=== PATIENT | male | born 1980 | race Caucasian/White ===

== ENCOUNTER 2019-10-13 19:12 | Emergency (ER) | payer BC, MEDICAID ==
[2019-10-13] MEDS: Lidocaine 1% 10 ML MDV INJECT ONE (19:25)
[2019-10-13] MEDS: Bacitracin Oint 1 GM U/D Packet TOP ONE (19:40)
[2019-10-13 19:47] VITALS: BP 134/89; PULSE 90
--- NOTE | 2019-10-13 20:17 | EDM.PDOC ---
ED [facility] GENERAL MEDICAL PROBLEM - General Chief Complaint: General Stated Complaint: NECK LACERATION Time Seen by Provider: 10/13/19 19:15 Source of Information: Reports: Patient History Limitations: Reports: No Limitations - History of Present Illness INITIAL COMMENTS - FREE TEXT/NARRATIVE: This patient presents to the ED for evaluation of a laceration. He was using a organ grinder on a metal angle iron when a piece flew off and struck him in the neck. He has a laceration to the right anterior neck overlying the carotid artery. He also has a small wound to his left 2nd digit but otherwise denies other injuries or concerns. Patient denies recent illnesses including fever, cough, shortness or breath, or sore throat. Onset: Today, Sudden Onset Date: 10/13/19 Onset Time: 18:00 Location: Reports: Neck Severity: Moderate Right Neck Pain Score (Numeric/FACES): 5 - Related Data Allergies Allergy/AdvReac Type Severity Reaction Status Date / Time No Known Allergies Allergy Verified 10/14/15 19:13 Home Meds: Home Meds NK [No Known Home Meds] 10/14/15 [History] Past Medical History Musculoskeletal History: Reports: Back Pain, Chronic ED ROS GENERAL - Review of Systems Review Of Systems: Comprehensive ROS is negative, except as noted in HPI. ED EXAM, GENERAL - Physical Exam Exam: See Below Exam Limited By: No Limitations General Appearance: Alert, WD/WN, No Apparent Distress Eye Exam: Bilateral Eye: PERRL Ears: Normal External Exam Nose: Normal Inspection Throat/Mouth: Normal Oropharynx, No Airway Compromise, Other (7 cm laceration to anterior right neck overlying carotid artery; laceration through epidermis must not into dermis. No pulsatile bleeding noted. ). No: Dysphagia Neck: Supple, Limited Range of Motion, Tender Lateral (tenderness right) Respiratory/Chest: No Respiratory Distress, Lungs Clear, Normal Breath Sounds, No Accessory Muscle Use Peripheral Pulses: 2+: Carotid (L), Carotid (R) Skin Exam: Warm, Dry, Normal Color, Wound/Incision (as noted) ED GENERAL MEDICAL PROCEDURES - Laceration/Wound Repair Right Anterior Neck Lac/wound length in cm: 7 Appearance: Subcutaneous, Linear, Mildly Contaminated Distal NVT: Neuro & Vascular Intact (no tendon injury) Anesthetic Type: Local Local Anesthesia - Lidocaine (Xylocaine): 1% Plain Local Anesthetic Volume: Other (12) Skin Prep: Chlorhexidine (Hibiciens) Saline irrigation (cc's): 300 Exploration/Debridement/Repair: Wound Explored, Explored to Base, Foreign Material Removed (metal shards) Closed with: Sutures Suture Size: 4-0 # of Sutures: 12 Suture Type: Nylon, Simple Suture Size: 5-0 # of Sutures: 3 Repaired with: Vicryl Drain Placement: No Sterile Dressing Applied: Nurse (antibiotic ointment applied) Tetanus Status Addressed: Yes (patient states last booster was 2 years ago) Progress/Comments: tolerated procedure well Course - Vital Signs Last Recorded V/S: Last Vital Signs Temp 36.6 C 10/13/19 19:21 Pulse 90 10/13/19 19:21 Resp 20 10/13/19 19:21 BP 134/89 10/13/19 19:21 Pulse Ox 98 10/13/19 19:21 - Re-Assessments/Exams Free Text/Narrative Re-Assessment/Exam: 10/13/19 20:33 This patient presents with a laceration to his neck. The wound was carefully evaluated and explored. The laceration was closed with sutures as noted above. There is no evidence of significant vascular, muscular, tendon, or bony damage with this laceration. No signs of foreign body. Possible complications ( infection, scarring) were reviewed with the patient. Follow up with primary care will be indicated in 7-10 days for suture removal. He should make an appointment sooner for any increases in pain, swelling, or any noted discharge from the wound. He was instructed to wash the wound twice per day with soap and water then apply antibiotic ointment. Departure - Departure Time of Disposition: 20:20 Disposition: Home, Self-Care 01 Condition: Good Clinical Impression: Laceration of neck - Discharge Information *PRESCRIPTION DRUG MONITORING PROGRAM REVIEWED*: Not Applicable Instructions: Wound Care, Adult, Laceration Care, Adult Forms: ED Department Discharge Additional Instructions: Discharge home. Keep would clean and dry. Keep wound covered during the day and remove at night. Wash the wound 2 times a day with soap and water. Apply antibiotic ointment to wound. Monitor for signs of infection. Apply ice for bruising and swelling. Tylenol for pain. Have sutures removed in 7 days. Follow up with primary provider as needed. Sepsis Event Note - Evaluation Sepsis Screening Result: No Definite Risk - Focused Exam Vital Signs: Vital Signs Temp Pulse Resp BP Pulse Ox 10/13/19 19:21 36.6 C 90 20 134/89 98 Date Exam was Performed: 10/13/19 Time Exam was Performed: 20:27
== END 2019-10-13 20:10 | disposition home or self-care (01) ==
LOC: LB.ED 19:12
DX: S11.91XA Laceration without foreign body of unspecified part of neck, initial encounter (principal); W26.8XXA Contact with other sharp object(s), not elsewhere classified, initial encounter
CPT/HCPCS: 12002; 99282; 99282-25; J2001